=== PATIENT | male | born 1935 | race Caucasian/White ===

== ENCOUNTER 2023-05-05 07:02 | Day surgery (SDC) | payer OTHER, BC ==
[2023-05-03 13:46] VITALS: BMI 28.8
[2023-05-05] MEDS ORDERED: MIDAZOLAM HCL 2 MG/2 ML SINGLE DOSE VIAL ONE (08:34)
[2023-05-05] MEDS ORDERED: PROPOFOL 20 ML ONE (08:34)
[2023-05-05] MEDS ORDERED: KETOROLAC TROMETHAMINE 30 MG/1 ML VIAL ONE (09:07)
[2023-05-05] MEDS ORDERED: ONDANSETRON 4 MG/2 ML VIAL ONE (09:07)
[2023-05-05] MEDS ORDERED: DEXAMETHASONE SOD PHOSPHATE 4 MG/1 ML VIAL ONE (09:07)
[2023-05-05 10:02] VITALS: RESP 19; TEMP 97.3
[2023-05-05 10:07] VITALS: BP 126/76; PULSE 80
== END 2023-05-05 10:19 | disposition home or self-care (01) ==
LOC: FASU 07:02
PROVIDERS: ATTEND Orthopaedic Surgery Hand Surgery
PROC: 01N53ZZ Release Median Nerve, Percutaneous Approach (ICD-10-PCS; principal; 2023-05-05 09:11)
DX: G56.01 Carpal tunnel syndrome, right upper limb (principal)